=== PATIENT | female | born 1990 | race Caucasian/White ===

== ENCOUNTER 2023-09-18 13:33 | Emergency (ER) | payer OTHER, SELFPAY ==
[2023-09-18 13:35] VITALS: BP 144/94
[2023-09-18 14:26] LABS: % Basophils 0.8 % (0-2); % Eosinophils 0.8 % (0-6); % Immature Granulocytes 0.2 % (0-0.5); % Lymphocytes 21.6 % (20.5-51.1); % Monocytes 9.3 % (1.7-9.3); % Neutrophils 67.3 % (42.2-75.2); Absolute Basophils 0.1 10^3/uL (0-0.2); Absolute Eosinophils 0.1 10^3/uL (0-0.7); Absolute Lymphocytes 1.4 10^3/uL (1.2-3.4); Absolute Monocytes 0.6 10^3/uL (0.1-0.6); Absolute Neutrophils 4.4 10^3/uL (1.4-6.5); Hematocrit 34.6 % (37.0-47.0); Mean Corp Hgb Conc. 34.7 g/dL (33.0-37.0); Mean Corpuscular Hgb 30.1 pg (27.0-31.0); Mean Corpuscular Volume 86.7 fL (81.0-99.0); Mean Platelet Volume 11.8 fL (7.4-10.4); Nucleated Red Blood Cells % 0 %; Platelet Count 211 10^3/uL (130-400); Red Blood Cell Count 3.99 10^6/uL (4.20-5.40); Red Cell Dist. Width 12.3 % (11.5-14.5); White Blood Cell Count 6.5 10^3/uL (4.8-10.8)
[2023-09-18 14:41] LABS: ALT (SGPT) 17 U/L (0-35); AST (SGOT) 27 U/L (14-36); Albumin 4.2 g/dl (3.5-5.0); Alkaline Phosphatase 67 U/L (38-126); Blood Urea Nitrogen 24 mg/dl (7-17); Calcium 9.3 mg/dl (8.4-10.2); Carbon Dioxide 21 mmol/L (22-30); Chloride 108 mmol/L (98-107); Glucose 128 mg/dl (70-99); Potassium 5.1 mmol/L (3.5-5.1); Sodium 136 mmol/L (135-145); Total Bilirubin 0.6 mg/dl (0.2-1.3); Total Protein 6.8 g/dl (6.3-8.2); eGFR 55.68
[2023-09-18 14:50] LABS: Troponin I < 0.012 ng/ml
--- NOTE | 2023-09-18 15:14 | ED.GENMED ---
History of Present Illness
General
Chief Complaint: Chest Pain
Source: patient
Exam Limitations: none
Time Seen by Provider: 09/18/23 15:04
Nursing documentation reviewed up to this point in time: agreed with
Travel History
Have you had any contact with someone who has COVID-19?: No
Do you have any symptoms of coronavirus? Fever > 100 degrees, chills, cough, shortness of breath, sore throat, loss of taste or smell, muscle aches, or headache?: No
History of Present Illness
History of Present Illness:
Patient to ED with complaint of substernal chest pain. SYmptoms started approx 3 days ago. States it is best in the AM and becomes worse throughout the day. Describes sensation of air trapped in esophagus. She has luis historyof Gerd, takes
famotidine daily. Has never had this sensation before. No n/v/diaphoresis. Feels mildly SOB at times. Brought self to ED for eval.
Past History
Past History
ED Past Medical History: HTN, IDDM, Renal failure, Hypothyroidism and Other (Fractured nose as a child)
ED Past Surgical History: Cholecystectomy, Gynecological (D&C) and Tonsilectomy
Social History
Tobacco: Non-smoker
Alcohol: Occasional
Drug: None
Personal: Single
Living: with family
Employment: Employed
Family History
Family History: CAD
Review of Systems
Review of Systems
Allergies reviewed?: Yes
All Other Systems: ROS reviewed and negative except as documented in HPI and ROS
Constitutional: Reports no symptoms
EENT: Reports no symptoms
Respiratory: Reports no symptoms
Cardiac: Reports chest pain
ABD/GI: Reports no symptoms
: Reports no symptoms
Musculoskeletal: Reports no symptoms
Skin: Reports no symptoms
Neurological: Reports no symptoms
Psychiatric: Reports no symptoms
Phy Exam
General Physical Exam
General Presentation: well appearing and no apparent distress
General age: appears stated age
General Skin: warm and dry
General Habitus: normal
General Mental: alert
Cardiovascular Exam
Cardiovascular Exam: regular rate/rhythm
Pulmonary Exam
Pulmonary Exam: lungs clear and no respiratory distress
Gastrointestinal Exam
Gastrointestinal Exam: non tender, soft and non distended
Musculoskeletal Exam
Musculoskeletal Exam: full ROM
Skin Exam
Skin Exam: normal color, warm/dry and no rash
Psychiatric Exam
Psychiatric Exam: normal mood/affect
Scores
Heart Score for Chest Pain Patients
STEMI patient?: Not applicable
Course
Orders/Labs/Results
Orders:
Orders
09/18/23 13:33
Electrocardiogram (*1) Urgent
Reason for Study: Chest Pain
09/18/23 13:34
EKG- Treatment ONCE
09/18/23 14:17
CR Chest - 2 Views Urgent
Comment:
Reason For Exam: chest pain
09/18/23 14:19
Complete Blood Count/With Diff Urgent
Comprehensive Metabolic Panel Urgent
Troponin I Urgent
09/18/23 15:13
Mag Hydrox/Al Hydrox/Simeth [Maalox] 30 ml Phenobarb/Hyoscy/Atropine/Scop [] 10 ml Viscous Lidocaine 2% [Xylocaine Viscous Cup] 10 ml PO NOW
09/18/23 15:29
Phenobarb/Hyoscy/Atropine/Scop [] 10 ml .ROUTE .STK-MED ONE
09/18/23 15:30
Mag Hydrox/Al Hydrox/Simeth [Maalox] 30 ml .ROUTE .STK-MED ONE
Viscous Lidocaine 2% [Xylocaine Viscous Cup] 15 ml .ROUTE .STK-MED ONE
09/18/23 15:34
D-Dimer Urgent
Abnormal Lab Results
09/18/23
14:19
RBC 3.99 L 10^6/uL
(4.20-5.40)
Hct 34.6 L %
(37.0-47.0)
MPV 11.8 H fL
(7.4-10.4)
Chloride 108 H mmol/L
(98-107)
Carbon Dioxide 21 L mmol/L
(22-30)
BUN 24 H mg/dl
(7-17)
Creatinine 1.3 H mg/dL
(0.6-1.0)
Glucose 128 H mg/dl
(70-99)
09/18/23 14:19
09/18/23 14:19
Vital Signs
Initial and Last Documented VS:
Initial Vital Signs
Temp Pulse Resp BP Pulse Ox
98.0 F 67 16 144/94 100
09/18/23 13:35 09/18/23 13:35 09/18/23 13:35 09/18/23 13:35 09/18/23 13:35
Last Documented Vital Signs
Temp Pulse Resp BP Pulse Ox
98.0 F 67 16 144/94 100
09/18/23 13:35 09/18/23 13:35 09/18/23 13:35 09/18/23 13:35 09/18/23 13:35
*Pulse Oximetry
Patient hypoxic: no
*EKG
Interpreted by ED Provider?: Yes
Interpretation: normal
Rate: normal
Rhythm: sinus
*Critical Care Note
Total Time (30-74mins, 75-104mins- exclusive of procedures): Not Applicable
Update Note
Update Note:
Improved with black holt. Lab results reviewed with her. troponin and ddimer neg, ekg nsr. Will discharge home, follow up with her GI this week (dr. ross)
ED Attending Note
-
Portions of this chart may have been created with voice recognition software.� Occasional wrong word or��sound alike� substitutions may have occurred due to the inherent limitations of voice recognition software.
Discharge Plan
Departure
Patient Disposition: Home (Routine Discharge)
Date of Disposition: 09/18/23
Time of Disposition: 16:17
Patient with high blood pressure during this ER visit?: No
Condition: Good
Covid-19: Not Applicable
Discharge Problem:
Chest pain due to GERD
Instructions: Acid Reflux and GERD in Adults (DC)
Prescriptions:
No Action
lisinopril 20 mg Tablet
20 mg PO DAILY
chlorthalidone 50 mg Tablet
50 mg PO DAILY
levothyroxine 25 mcg Tablet
25 mcg PO DAILY
verapamil 240 mg Tablet Extended Release
250 mg PO DAILY
topiramate 100 mg Tablet
100 mg PO DAILY
Humalog U-100 Insulin 100 unit/mL Cartridge
5 unit SC TID
Rx Instructions:
SLIDING SCALE
insulin glargine [Lantus Solostar U-100 Insulin] 100 unit/mL (3 mL) Insulin Pen
30 unit SC QPM
omeprazole 40 mg capsule,delayed release(DR/EC)
40 mg PO DAILY Qty: 30 0RF
Referrals:
Taj Banerjee MD [Family Provider] -
Mary Ross MD [Active] - Call in 1-3 days for appt
Interventions
Interventions:
*ED COVID-19 Vaccine History Last Done: 09/18/23 13:35
Discharge Date and Time
Print Language: TONGAN
[2023-09-18] MEDS: MAALOX 50 PO (15:32)
[2023-09-18 15:58] LABS: D-Dimer 0.38 ug/mlFEU (0.00-0.50)
[2023-09-18 16:33] VITALS: BP 137/76
== END 2023-09-18 17:39 | disposition home or self-care (01) ==
LOC: EMR 13:33
PROVIDERS: Emergency Medicine; Nurse Practitioner; EMERGENCY PHYSICIAN Emergency Medicine; FAMILY PHYSICIAN Family Medicine
DX: R07.89 Other chest pain (principal); R06.02 Shortness of breath; K21.9 Gastro-esophageal reflux disease without esophagitis; E11.9 Type 2 diabetes mellitus without complications; I12.9 Hypertensive chronic kidney disease with stage 1 through stage 4 chronic kidney disease, or unspecified chronic kidney disease; N18.9 Chronic kidney disease, unspecified; E03.9 Hypothyroidism, unspecified; Z90.49 Acquired absence of other specified parts of digestive tract; Z79.4 Long term (current) use of insulin; Z79.899 Other long term (current) drug therapy
CPT/HCPCS: 99283; 71046; 80053; 84484; 85025; 85379; 93005

== ENCOUNTER 2023-10-27 18:14 | Emergency (ER) | payer OTHER, SELFPAY ==
[2023-10-27 18:16] VITALS: BP 135/102
[2023-10-27 18:43] LABS: % Basophils 0.6 % (0-2); % Eosinophils 0.5 % (0-6); % Immature Granulocytes 0.2 % (0-0.5); % Lymphocytes 25.6 % (20.5-51.1); % Monocytes 9.2 % (1.7-9.3); % Neutrophils 63.9 % (42.2-75.2); Absolute Lymphocytes 1.6 10^3/uL (1.2-3.4); Absolute Monocytes 0.6 10^3/uL (0.1-0.6); Hematocrit 36.8 % (37.0-47.0); Mean Corp Hgb Conc. 35.3 g/dL (33.0-37.0); Mean Corpuscular Hgb 29.7 pg (27.0-31.0); Mean Corpuscular Volume 84.2 fL (81.0-99.0); Mean Platelet Volume 11.6 fL (7.4-10.4); Nucleated Red Blood Cells % 0 %; Platelet Count 247 10^3/uL (130-400); Red Blood Cell Count 4.37 10^6/uL (4.20-5.40); Red Cell Dist. Width 12.7 % (11.5-14.5); White Blood Cell Count 6.2 10^3/uL (4.8-10.8)
[2023-10-27 18:44] LABS: ALT (SGPT) 15 U/L (0-35); AST (SGOT) 23 U/L (14-36); Albumin 4.4 g/dl (3.5-5.0); Alkaline Phosphatase 83 U/L (38-126); Blood Urea Nitrogen 18 mg/dl (7-17); Calcium 9.6 mg/dl (8.4-10.2); Carbon Dioxide 20 mmol/L (22-30); Chloride 106 mmol/L (98-107); Glucose 88 mg/dl (70-99); Potassium 4.5 mmol/L (3.5-5.1); Sodium 137 mmol/L (135-145); Total Bilirubin 0.4 mg/dl (0.2-1.3); Total Protein 7.1 g/dl (6.3-8.2); eGFR 46.61
[2023-10-27 20:36] VITALS: BMI 37.1
[2023-10-27 20:41] VITALS: BP 112/79
[2023-10-27 21:00] VITALS: BP 129/82
--- NOTE | 2023-10-27 21:03 | ED.GENMED ---
History of Present Illness
General
Chief Complaint: Weakness
Time Seen by Provider: 10/27/23 20:55
History of Present Illness
History of Present Illness:
33-year-old female with history of insulin-dependent diabetes and chronic kidney disease presents to the emergency department for evaluation of nausea and poor appetite for the past several days. She recently increased her Mounjaro dosing, last
dose was on Tuesday. Denies any abdominal pain. She feels generally fatigued and weak. Her surgical elastic knitter hand frame advised her to come to the emergency department due to concern for dehydration in the setting of her chronic kidney disease.
Past History
Past History
ED Past Medical History: HTN, IDDM, Renal failure, Hypothyroidism and Other (Fractured nose as a child)
ED Past Surgical History: Cholecystectomy, Gynecological (D&C) and Tonsilectomy
Social History
Tobacco: Non-smoker
Alcohol: Occasional
Drug: None
Personal: Single
Living: with family
Employment: Employed
Family History
Family History: CAD
Review of Systems
Review of Systems
Allergies reviewed?: Yes
All Other Systems: ROS reviewed and negative except as documented in HPI and ROS
Phy Exam
Physical Exam
Physical Exam:
GEN: Well appearing, NAD, WDWN
HEENT: Oral mucosa moist, no scleral icterus
Cardiac: Regular rate
Lung: No respiratory distress, no tachypnea
Abdomen: Soft, nontender
MSK: No gross deformity or injuries
Skin: Good color, no pallor or jaundice, no rashes
Neuro: AO x3, moves all extremities freely
Psych: Calm, cooperative
Course
Orders/Labs/Results
Orders:
Orders
10/27/23 18:23
Complete Blood Count/With Diff Urgent
Comprehensive Metabolic Panel Urgent
10/27/23 21:02
0.9% Sodium Chloride 1000 ml [Nss] 1,000 ml IV BOLUS
Metoclopramide [Reglan] 10 mg IV NOW STA
Abnormal Lab Results
10/27/23
18:23
Hct 36.8 L %
(37.0-47.0)
MPV 11.6 H fL
(7.4-10.4)
Carbon Dioxide 20 L mmol/L
(22-30)
BUN 18 H mg/dl
(7-17)
Creatinine 1.5 H mg/dL
(0.6-1.0)
10/27/23 18:23
10/27/23 18:23
Vital Signs
Initial and Last Documented VS:
Initial Vital Signs
Temp Pulse Resp BP Pulse Ox
98.6 F 95 16 135/102 97
10/27/23 18:16 10/27/23 18:16 10/27/23 18:16 10/27/23 18:16 10/27/23 18:16
Last Documented Vital Signs
Temp Pulse Resp BP Pulse Ox
98.6 F 67 18 117/61 98
10/27/23 18:16 10/27/23 22:00 10/27/23 22:00 10/27/23 23:00 10/27/23 21:35
MDM/Problems Addressed
MDM/Problems Addressed:
Likely symptoms are due to increased Mounjaro dose. Advised she hold the next dose then discuss w/ her surgical elastic knitter hand frame. No indication for imaging
*Critical Care Note
Total Time (30-74mins, 75-104mins- exclusive of procedures): Not Applicable
ED Attending Note
-
Portions of this chart may have been created with voice recognition software.� Occasional wrong word or��sound alike� substitutions may have occurred due to the inherent limitations of voice recognition software.
Discharge Plan
Departure
Patient Disposition: Home (Routine Discharge)
Date of Disposition: 10/27/23
Time of Disposition: 21:32
Patient with high blood pressure during this ER visit?: No
Discharge Problem:
Acute dehydration
Instructions: Generalized Weakness (DC)
Prescriptions:
New
metoclopramide HCl [Reglan] 10 mg tablet
10 mg PO Q8HPRN PRN (Reason: nausea and vomiting) Qty: 10 0RF
No Action
lisinopril 20 mg Tablet
20 mg PO DAILY
chlorthalidone 50 mg Tablet
50 mg PO DAILY
levothyroxine 25 mcg Tablet
25 mcg PO DAILY
verapamil 240 mg Tablet Extended Release
250 mg PO DAILY
topiramate 100 mg Tablet
100 mg PO DAILY
Humalog U-100 Insulin 100 unit/mL Cartridge
5 unit SC TID
Rx Instructions:
SLIDING SCALE
insulin glargine [Lantus Solostar U-100 Insulin] 100 unit/mL (3 mL) Insulin Pen
30 unit SC QPM
omeprazole 40 mg capsule,delayed release(DR/EC)
40 mg PO DAILY Qty: 30 0RF
Activity Restrictions/Additional Instructions:
Do not take your next dose of Mounjaro, then reduce your dose to your original dosing
Follow up with your prescriber if symptoms worsen
Interventions
Interventions:
*Risk Screen - Suicide Last Done: 10/27/23 18:16
*General Assessment Last Done: 10/27/23 18:16
*Neglect/Abuse Screening Last Done: 10/27/23 18:16
ED- Fall Risk Assessment Last Done: 10/27/23 20:53
*ED COVID-19 Vaccine History Last Done: 10/27/23 18:16
*Nursing Disposition Last Done: 10/27/23 23:04
ED- Cardiac Assessment Last Done: 10/27/23 20:53
ED- Neurological Assessment Last Done: 10/27/23 20:53
ED- Pulmonary Assessment Last Done: 10/27/23 20:53
Discharge Date and Time
Discharge Date/Time: 10/27/23 23:09
Print Language: POLISH
[2023-10-27] MEDS: REGLAN 10 MG IV (21:16)
[2023-10-27] MEDS: NSS 1000 IV (21:16)
[2023-10-27 22:00] VITALS: BP 111/62
[2023-10-27 23:00] VITALS: BP 117/61
== END 2023-10-27 23:09 | disposition home or self-care (01) ==
LOC: EMR 18:14
PROVIDERS: Emergency Medicine; EMERGENCY PHYSICIAN Emergency Medicine
DX: E86.0 Dehydration (principal); R11.0 Nausea; R63.0 Anorexia; E11.22 Type 2 diabetes mellitus with diabetic chronic kidney disease; N18.9 Chronic kidney disease, unspecified; I12.9 Hypertensive chronic kidney disease with stage 1 through stage 4 chronic kidney disease, or unspecified chronic kidney disease; E03.9 Hypothyroidism, unspecified; Z79.4 Long term (current) use of insulin; Z90.49 Acquired absence of other specified parts of digestive tract
CPT/HCPCS: 99284; 96374; 96361; 80053; 85025

== ENCOUNTER 2024-01-24 19:04 | Emergency (ER) | payer OTHER, SELFPAY ==
[2024-01-24 19:08] VITALS: BP 125/86
[2024-01-24 19:57] LABS: HCG, Urine Qualitative Screen Negative
[2024-01-24 22:04] VITALS: BP 121/85
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
== END 2024-01-24 23:30 | disposition home or self-care (01) ==
LOC: EMR 19:04
PROVIDERS: Physician Assistant Medical; EMERGENCY PHYSICIAN Student in an Organized Health Care Education/Training Program; FAMILY PHYSICIAN Family Medicine
DX: S16.1XXA Strain of muscle, fascia and tendon at neck level, initial encounter (principal); V89.2XXA Person injured in unspecified motor-vehicle accident, traffic, initial encounter; Y92.410 Unspecified street and highway as the place of occurrence of the external cause; R42 Dizziness and giddiness; R11.0 Nausea; I10 Essential (primary) hypertension; E11.9 Type 2 diabetes mellitus without complications; E03.9 Hypothyroidism, unspecified; Z82.49 Family history of ischemic heart disease and other diseases of the circulatory system; Z90.49 Acquired absence of other specified parts of digestive tract
CPT/HCPCS: 99284; 70450; 72125; 81025